=== PATIENT | female | born 1980 | race Caucasian/White ===

== ENCOUNTER 2016-11-19 07:07 | Inpatient (IN) | payer MEDICARE, MEDICAID ==
[~2016-11-19] VITALS: Ht 162.6 cm; Wt 100.1 kg
--- NOTE | ~2016-11-19 | CON ---
PATIENT'S NAME: LARRY TAVAREZ [facility] AGE: 36 Y [address] ROOM: [place] [id number] LOCATION: GOBS ADMIT DATE: 11/19/2016 Consultation DISCHARGE DATE: FAMILY PHYSICIAN: BREANNE TAYLOR Travel Counselor ATTENDING PHYSICIAN: BREANNE TAYLOR DATE OF CONSULTATION: 11/19/2016 HISTORY OF PRESENT ILLNESS: The patient is a 36-year-old, G2, P 1-0-0-1, with intrauterine at 40 weeks' and 0 days, who presented today for induction of labor. She was found to be 2/50 and -1. Pitocin was started. Throughout the day, the patient has had to have the Pitocin discontinued four times total due to the decelerations. The last few times the Pitocin only got to 1 milliunit an hour before the decelerations were noted. I was thus consulted by Dr. Ann Lugo and Dr. Breanne Taylor for a section. I reviewed the strip and agree with the need for section. I discussed this with the patient given that she is 8 cm dilated for over 4 hours with inability to augment her labor, I recommend delivery without Pitocin, the status is reassuring. The patient's has been uncomplicated except for advanced maternal age and depression. She does have a history of term vaginal delivery 10 years ago. She denies any surgical history. The patient was counseled about the risks of surgery to include, but are not limited to bleeding, infection, and damage to surrounding organs and tissue including bowel, bladder, blood vessels, ureters, and nerves. We also discussed the risk of need an additional procedures or hospitalizations due to any complications. The patient indicates understanding and consents the section. MD MARY ANN LIPSCOMB/tyesha /[id number] d: 11/20/16 0119 t: 11/29/16 1343, CONSULTATION REPORT
--- NOTE | ~2016-11-19 | OR ---
PATIENT'S NAME: LARRY TAVAREZ [facility] AGE: 36 Y [address] ROOM: [place] [address] LOCATION: [facility] ADMIT DATE: 11/19/2016 OR/Procedure Report DISCHARGE DATE: FAMILY PHYSICIAN: BREANNE TAYLOR Composition Molder ATTENDING PHYSICIAN: BREANNE TAYLOR SURGEON: Terrence Stevens MD [employer] DEVELOPER: Ann Lugo M.D. and Breanne Taylor HO3. Their assistance was required for delivery of the fetus and adequate exposure during the case. DATE OF PROCEDURE: 11/20/2016 PREOPERATIVE DIAGNOSES: 1. Intrauterine , 40 weeks 0 days. 2. Arrest of dilation with inability to augment labor. 3. Advanced maternal age. 4. Meconium-stained fluid. 5. Depression. POSTOPERATIVE DIAGNOSES: 1. Intrauterine , 40 weeks 0 days. 2. Arrest of dilation with inability to augment labor. 3. Advanced maternal age. 4. Meconium-stained fluid. 5. Depression. PROCEDURE PERFORMED: Primary low-transverse section. ANESTHESIA: Epidural. FINDINGS: Viable male with score of 5 and 7 and weight of 8 pounds 2 ounces. Meconium-stained membranes. Placenta intact with 3- vessel cord. Normal uterus. Normal fallopian tubes and ovaries bilaterally. Arterial cord pH is 7.39 with a base deficit of 5. ESTIMATED BLOOD LOSS: 750 mL. COMPLICATIONS: None. INDICATIONS: The patient is a 36-year-old female with intrauterine at 40 weeks 0 days, who presented to Labor and Delivery today for induction of labor. She was found to be 2, 50, and -1. She had Pitocin started. She had artificial rupture of membranes around 1300 hours, meconium-stained fluid. She had her Pitocin discontinued 4 times throughout the day due to decelerations. The Pitocin, the last 2 times that they got shut off, never got above 1, and the patient never dilated past 8 cm for over 4 hours. PATIENT'S NAME: LARRY TAVAREZ [facility] AGE: 36 Y [address] ROOM: [place] [address] LOCATION: [facility] ADMIT DATE: 11/19/2016 OR/Procedure Report DISCHARGE DATE: FAMILY PHYSICIAN: BREANNE TAYLOR Composition Molder ATTENDING PHYSICIAN: BREANNE TAYLOR Therefore, it was recommended we proceed with section. DESCRIPTION OF PROCEDURE: The patient was taken to the operating room. Epidural was already in place. Travis catheter was already in place. She was placed in the operating table in dorsal supine position with leftward tilt. She was then prepped and draped in the usual sterile fashion. SCDs were on. A time-out was performed. Anesthesia was found to be adequate. A scalpel was then used to make a Pfannenstiel incision and carried down to the underlying fascia. The fascia was scored. The fascial incision was extended with Rai scissors. The fascia was then dissected off the rectus muscles superiorly and inferiorly bluntly and sharply. The peritoneum was identified and entered bluntly. The peritoneal incision was extended. Bladder blade was placed for visualization. Scalpel was then used to make a transverse hysterotomy in the lower uterine segment. This was extended in cephalad-caudal direction. The head was then grasped and brought to the incision, it was delivered through the incision. The mouth and nose were bulb suctioned. The remainder of the fetus was then delivered. The cord was then clamped and cut. was handed to the awaiting delivery team. Cord blood and cord gases were obtained. The placenta was then manually extracted. The uterus was exteriorized and cleared of remaining clots and debris. The hysterotomy was then closed in a running locked fashion with 0 chromic suture. There was an area of bleeding in the midline that required 2 [id number] sutures. Cautery was also used for hemostasis around the hysterotomy and hemostasis was noted. The posterior cul-de-sac was cleared of remaining clots and debris. The uterus was replaced into the abdominal cavity. The pericolic gutters were cleared of clot. The hysterotomy was reexamined and noted to be hemostatic. The rectus muscles and fascia were examined and noted to be hemostatic. The fascia was then closed in a running fashion using 0 Vicryl suture. The subcutaneous tissue was irrigated and no areas of bleeding were noted. The skin was then closed in a subcuticular fashion with 4-0 Monocryl, Steri- Strips, and a pressure dressing. Instrument, sponge, and needle counts were correct prior to abdominal closure and at the conclusion of the case. DISPOSITION: Mom stable. Baby in room with mom. MD MARY ANN LIPSCOMB/tyesha /[id number] d: 11/20/16 0205 t: 11/29/16 1346, OPERATIVE SUMMARY
[2016-11-19 07:53] LABS: BASOPHIL % 0.1 %; EOSINOPHIL # 0.1 K/uL (0.0-0.5); EOSINOPHIL % 0.8 %; HEMOGLOBIN 11.3 g/dL (11.0-15.0); IMMATURE GRANULOCYTE % 0.3 %; LYMPHOCYTE # 1.5 K/uL (0.8-4.0); LYMPHOCYTE % 19.5 %; MCH 29.1 pg (27.0-34.0); MCHC 33.2 gm/dL (32.0-36.5); MCV 87.6 fl (83.0-98.0); MONOCYTE # 0.3 K/uL (0.0-1.0); MONOCYTE % 3.6 %; MPV 10.9 fl (9.4-12.4); NEUTROPHIL # (ANC) 5.7 K/uL (1.8-7.8); NEUTROPHIL % 75.7 %; NRBC % 0 /100WBC (0-0.00); PLATELET COUNT 124 K/uL (150-450); RBC 3.88 M/uL (3.50-5.50); RDW-CV 14.4 % (11.9-14.6); WBC 7.5 K/uL (4.0-11.0)
[2016-11-19] MEDS ORDERED: PRENATAL 1+1)(P1 TAB PO (08:15)
[2016-11-19] MEDS ORDERED: ZOLOFT100 MG PO (08:15)
[2016-11-19] MEDS ORDERED: ZOFRAN4 MG (08:42)
[2016-11-19] MEDS ORDERED: ZOFRAN4 MG PO (09:14)
--- NOTE | 2016-11-19 17:32 | NUR ---
Last VS: T:98.4 P:76 R: 18 BP: 122/68 Pain ratin. Last pain med: Epidural* Medicated at: ongoing Effective: Yes FHT: 115-120 Dilatation: 6.5 Effacement %: 100 Station: +1 Significant event: Pitocin currently at 5mu. Vitals stable and comfortable with epidural. Fht's with occasional lower baseline at times. Baby has had some variables, earlys and an occasional late decel. Thick mec noted with AROM at 1253. *.
[2016-11-20 01:11] LABS: BICARBONATE 18.1 mmol/L (18.0-23.0); PCO2 30 mmHg (35-45); PO2 32 mmHg (80-90)
[2016-11-20 04:33] LABS: BASOPHIL % 0.2 %; HEMATOCRIT 31.8 % (33.0-46.0); HEMOGLOBIN 10.6 g/dL (11.0-15.0); IMMATURE GRANULOCYTE # 0.1 K/uL (0.0-0.3); IMMATURE GRANULOCYTE % 0.5 %; LYMPHOCYTE # 0.7 K/uL (0.8-4.0); LYMPHOCYTE % 5.9 %; MCH 29.3 pg (27.0-34.0); MCHC 33.3 gm/dL (32.0-36.5); MCV 87.8 fl (83.0-98.0); MONOCYTE # 0.3 K/uL (0.0-1.0); MONOCYTE % 2.4 %; MPV 10.5 fl (9.4-12.4); NEUTROPHIL # (ANC) 10.5 K/uL (1.8-7.8); NRBC % 0 /100WBC (0-0.00); PLATELET COUNT 117 K/uL (150-450); RBC 3.62 M/uL (3.50-5.50); RDW-CV 14.2 % (11.9-14.6); WBC 11.5 K/uL (4.0-11.0)
--- NOTE | 2016-11-20 05:57 | NUR ---
VSS. MADRIGAL CATHETER DRAINS CLEAR, YELLOW URINE. INCISION CLEAN/DRY/INTACT WITH MICROFOAM. FUNDUS FIRM, SMALL FLOW. KOSHER DIET. TORADOL DUE AT 0630. MADRIGAL CAN BE PULLED AT 0630.
--- NOTE | 2016-11-20 15:21 | NUR ---
Met with patient at bedside today. Introduced myself and explained my role with the CM department. Mom has Medicare AB due to a disability. The family does not have any other medical insurance. She states she recently applied for Medicaid for their 10 year old daughter Sonia Bergeron. She has not contacted Medicaid to see if Caitie was approved or not and she states she did not inform them of the pregnacy. I asked permission to talk with Myrtle Bernard with [employer] on helping her with the Medicaid application for baby David De Oliveira. Mom said she would appreciate any help she can get. I also talked with mom at length about how she is managing her depression and anxiety. She states she is on Zoloft and see Augustina Zarate at [facility]. She state she has not seen Augustina in about one month, but she is planning on contacting her once she is discharged from the hospital. I gave her information on post depression and reviewed the signs and symptoms. I encouraged her to contact Augustina or Dr. Burns if she has symptoms for 24 hours or more. I also provided her with a list of community resources in [place] and a voucher for the [facility] to rock picker some baby items. I spoke to Myrtle with [facility] at approximately 1000 today and asked her to meet with mom to help with the Medicaid Application. Myrtle states she will do this. Will continue to follow and offer supports.
--- NOTE | 2016-11-21 16:37 | NUR ---
Last VS: T:98.2 P:85 R: 14 BP: 105/71 Pain ratin-5 Last pain med: Percocet Medicated at: 1617 Effective: Yes R Lung sounds: , L Lung sounds: Fundus:, FIRM Lochia: SMALL Breasts: FILLING Nipples: TENDER/INTACT (has lanolin) Incision appearance: TRANSV C/S INC APPROX Incision closure: SUTURE/STERI (some steristrips loose, Dr Stevens wants steristrips replaced w/ new ones by nurse before pt's discharge tmmrw. Bowel sounds: Passing flatus: Y Voiding well: Y Significant event: *.UP AD AARON, SHOWER TAKEN AT 1600, LAST MOTRIN TAKEN ABOUT NOON.
[2016-11-22] MEDS ORDERED: SURFAK240 MG PO (09:52)
[2016-11-22] MEDS ORDERED: MOTRIN800 MG PO (09:53)
[2016-11-22] MEDS ORDERED: PERCOCET 5-3251 EACH PO (09:53)
== END 2016-11-22 16:50 | disposition disaster alternative care site (69) | DRG 766 ==
LOC: GOBM → GOBS 07:07 → GOBM 07:07 → GOBS 07:08
PROVIDERS: Family Medicine; Obstetrics & Gynecology; ADMIT Family Medicine
PROC: 10907ZC Drainage of Amniotic Fluid, Therapeutic from Products of Conception, Via Natural or Artificial Opening (ICD-10-PCS; principal; 2016-11-20)
PROC: 3E033VJ Introduction of Other Hormone into Peripheral Vein, Percutaneous Approach (ICD-10-PCS; principal; 2016-11-20)
PROC: 10D00Z1 Extraction of Products of Conception, Low, Open Approach (ICD-10-PCS; principal; 2016-11-20)
DX: O99.344 Other mental disorders complicating childbirth (principal); F32.9 Major depressive disorder, single episode, unspecified; O77.0 Labor and delivery complicated by meconium in amniotic fluid; O62.1 Secondary uterine inertia; O76 Abnormality in fetal heart rate and rhythm complicating labor and delivery; Z3A.40 40 weeks gestation of pregnancy; Z37.0 Single live birth
CPT/HCPCS: J0690; J1885; J2210; J2590; J3010; J7120